=== PATIENT | male | born 1990 | race Two or more races ===

== ENCOUNTER 2020-03-10 10:49 | Emergency (ER) | payer OTHER ==
[~2020-03-10] VITALS: Ht 172.7 cm; Wt 75.0 kg
[2020-03-10 10:56] VITALS: BP 115/65
[2020-03-10 11:28] LABS: ALBUMIN 4.6 g/dL (3.4-5.0); ANION GAP 11 mmol/L (5-15); CALCIUM 8.9 mg/dL (8.5-10.1); CHLORIDE 100 mmol/L (98-107)
[2020-03-10 11:32] LABS: ALANINE AMINOTRANSFERASE 39 U/L (12-78); ALKALINE PHOSPHATASE 127 U/L (45-117); BILIRUBIN,TOTAL 1.5 mg/dL (0.2-1.0); CREATININE 0.98 mg/dL (0.7-1.3); TOTAL PROTEIN 8.4 g/dL (6.4-8.2)
[2020-03-10 11:33] LABS: BASOPHILS % (AUTO) 1 % (0-1); EOSINOPHILS % (AUTO) 9 % (1-7); LYMPHOCYTES % (AUTO) 26 % (22-44); MEAN CORPUSCULAR HEMOGLOBIN 30.6 pg (27.5-34.5); MEAN CORPUSCULAR HGB CONC 34.5 g/dL (33.2-36.2); MEAN PLATELET VOLUME 7.2 fL (7.4-10.4); MONOCYTES % (AUTO) 4 % (2-9); NEUTROPHILS % (AUTO) 61 % (42-75); PLATELET COUNT 258 x10^3/uL (130-400); RED BLOOD COUNT 5.27 x10^6/uL (4.38-5.82); RED CELL DISTRIBUTION WIDTH 12.7 % (9.4-14.8)
[2020-03-10 11:37] LABS: MD NO
[2020-03-10] MEDS ORDERED: POTASSIUM CHLORIDE 20 MEQ TAB.ER.PRT ONE (12:19)
[2020-03-10] MEDS ORDERED: POTASSIUM CHLORIDE 20 MEQ PACKET ONE (12:20)
[2020-03-10] MEDS ORDERED: POTASSIUM CHLORIDE 20 MEQ PACKET PO ONE (12:30)
--- NOTE | 2020-03-10 12:37 | NUR ---
PT PROVIDED DIET TRAY. AMBULATED TO BR AND BACK TO ROOM INDEPENDENTLY WITH A STEADY GAIT.
== END 2020-03-10 12:52 | disposition home or self-care (01) ==
LOC: ED 11:59
DX: R53.1 Weakness (principal); E16.2 Hypoglycemia, unspecified; F10.10 Alcohol abuse, uncomplicated; E87.6 Hypokalemia; I45.9 Conduction disorder, unspecified; Y90.9 Presence of alcohol in blood, level not specified
CPT/HCPCS: 36415; 80053; 85025; 93005; 99284